=== PATIENT | male | born 1990 | race Caucasian/White ===

== ENCOUNTER 2016-04-06 08:21 | Inpatient (IN) | payer OTHER ==
[~2016-04-06] VITALS: Ht 170.2 cm; Wt 114.0 kg
[2016-04-06] MEDS ORDERED: FLUMAZENIL 0.5 MG INJ IV STA (08:29)
[2016-04-06] MEDS ORDERED: SOD CHLORIDE 0.9% 1,000 ML IV STA (08:29)
[2016-04-06] MEDS ORDERED: NALOXONE 2 MG SYG IV ONE (08:30)
[2016-04-06 08:59] LABS: BASOPHILS % 0.1 % (0.0-2.0); HEMATOCRIT 44.6 % (42.0-52.0); HEMOGLOBIN 15.3 g/dl (14.0-18.0); LYMPHOCYTES # 0.9 10^3/ul (0.8-2.9); LYMPHOCYTES % 5.7 % (15.0-51.0); MEAN CORPUSCULAR HEMOGLOBIN 30.2 pg (29.0-33.0); MEAN CORPUSCULAR HGB CONC 34.3 g/dl (32.0-37.0); MEAN PLATELET VOLUME 8.1 fl (7.4-10.4); MONOCYTE # 0.7 10^3/ul (0.3-0.9); MONOCYTES % 4.3 % (0.0-11.0); NEUTROPHIL # 13.8 10^3/ul (1.6-7.5); NEUTROPHILS % 89.9 % (39.0-77.0); PLATELET COUNT 236 10^3/UL (140-440); RED BLOOD COUNT 5.07 10^6/ul (4.70-6.10); RED CELL DISTRIBUTION WIDTH 12.7 % (11.5-14.5); UNCORRECTED WBC 15.4 10^3/ul (4.8-10.8); WHITE BLOOD COUNT 15.4 10^3/ul (4.8-10.8)
[2016-04-06 09:06] LABS: ALBUMIN 4.8 g/dl (3.3-4.9); CHLORIDE 104 mmol/L (97-110)
[2016-04-06 09:07] LABS: POTASSIUM 4.5 mmol/L (3.5-5.1); SODIUM 148 mmol/L (135-144)
[2016-04-06 09:08] LABS: CREATININE 0.82 mg/dl (0.61-1.24); INR 0.97; PARTIAL THROMBOPLASTIN TIME 24.8 Sec (25.0-35.0); PROTIME 12.9 Sec (12.2-14.2)
[2016-04-06 09:09] LABS: ALANINE AMINOTRANSFERASE 99 IU/L (13-69); ALBUMIN/GLOBULIN RATIO 1.17; ALKALINE PHOSPHATASE 98 IU/L (42-121); ANION GAP 26 (8-16); ASPARTATE AMINO TRANSFERASE 97 IU/L (15-46); BLOOD UREA NITROGEN 7 mg/dl (7-20); CARBON DIOXIDE 23 mmol/L (21-31); GLUCOSE 126 mg/dl (70-220); TOTAL PROTEIN 8.9 g/dl (6.1-8.1)
[2016-04-06 09:10] LABS: ACETAMINOPHEN < 10.0 ug/ml (10.0-30.0); CALCIUM 8.2 mg/dl (8.4-10.2); CONDITION 1; SALICYLATE < 1.0 mg/dl (5.0-30.0)
[2016-04-06 09:11] LABS: ADD UMIC NO; URINE BILIRUBIN (Dip) NEGATIVE (NEGATIVE); URINE BLOOD (Dip) NEGATIVE (NEGATIVE); URINE COLOR LT. YELLOW (YELLOW); URINE GLUCOSE (Dip) NEGATIVE (NEGATIVE); URINE KETONES (Dip) NEGATIVE (NEGATIVE); URINE LEUKOCYTE ESTERASE (Dip) NEGATIVE (NEGATIVE); URINE NITRITE (Dip) NEGATIVE (NEGATIVE); URINE TOTAL PROTEIN (Dip) NEGATIVE (NEGATIVE); URINE UROBILINOGEN (Dip) 0.2 E.U./dL (0.1-1.0)
--- NOTE | 2016-04-06 09:11 | RADRPT ---
PROCEDURE: Chest Radiograph. CLINICAL INDICATION: Altered level of consciousness TECHNIQUE: Single frontal chest radiograph. COMPARISON: None available FINDINGS: The heart is magnified. The cardiomediastinal silhouette is within normal limits. Lung volumes are decreased there is mild basilar atelectasis and central compressive change. No infiltrate or effusi on is seen. The bones are intact. IMPRESSION: 1. No evidence of acute cardiopulmonary disease. RPTAT: KK .Robert Rubio MD, MD Date Time Electronically viewed and signed by .Robert Rubio MD, MD on 04/06/2016 09:10 .B/
--- NOTE | 2016-04-06 09:22 | RADRPT ---
PROCEDURE: CT brain without contrast CLINICAL INDICATION: Altered mental status, possible drug overdose TECHNIQUE: CT of the brain without contrast was performed on a multidetector CT scanner, with multi planar reformats. One or more of the following dose reduction techniques were used: Automated expos ure control, adjustment in mA and / or kV according to patient size, use of iterative reconstructive technique. CTDIvol = 43.6 mGy; DLP = 630.2 mGy-cm. COMPARISON: None available FINDINGS: There are patient motion related artifacts mildly limiting evaluation. No acute intracranial hemorr graciela is identified. No extra-axial fluid collection is seen. There is no mass effect. No midline shift is identified. Ventricles and sulci are within normal limits for size and configuration. The density of the visualized portions of the brain is unremarkable. Visualized henson-white junction s appear preserved. Calvarium and skull base are unremarkable. 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 IMPRESSION: Mildly limited evaluation due to motion, without acute intracranial pathology identified. RPTAT: VV .Reginald Pickering MD, MD Date Time Electronically viewed and signed by .Reginald Pickering MD, on 04/06/2016 09:21 .O/
[2016-04-06 09:39] LABS: BARBITURATES NEGATIVE (NEGATIVE); BENZODIAZEPINES NEGATIVE (NEGATIVE); CANNABINOIDS POSITIVE (NEGATIVE)
[2016-04-06 09:40] LABS: COCAINE NEGATIVE (NEGATIVE); OPIATES NEGATIVE (NEGATIVE)
[2016-04-06] MEDS ORDERED: MAGNESIUM SULFATE 2 GM, MULTIVITAMINS 10 ML, THIAMINE 100 MG, FOLIC ACID 1 MG in SOD CH... IV STA (10:43)
--- NOTE | 2016-04-06 10:56 | ERA ---
ER Documentation Chief Complaint Date/Time DATE: 04/06/16 TIME: 10:52 Chief Complaint BIBA D/T ALOC SUSPECTED OVERDOSE UNK SUBSTANCE. ETOH ODOR NOTED. HPI This is a 25-year-old male who was found in his truck with altered level of consciousness. According to EMS the family states he does drink a lot of alcohol and is not uncommon for him to sleep in his car. Friend found him this morning and found him difficult to arouse. He did have the smell of alcohol on his breath. EMS was called because the patient would not wake up very easily. There is no drug paraphernalia found. On arrival the patient is somnolent but will arouse to painful stimulation. Very limited history ROS All systems reviewed and are negative except as per history of present illness. Medications Home Meds Unable to Obtain Active Prescriptions or Reported Meds Allergies Allergies: Coded Allergies: Unable to Assess (Verified Allergy, Severe, 04/06/16) PMhx/Soc Hx Alcohol Use: Yes (ETOH ODOR NOTED ON PT) Smoking Status: Unknown if ever smoked FmHx Unable to obtain due to mental status Physical Exam Vitals Vital Signs Date Time Temp Pulse Resp B/P Pulse Ox O2 Delivery O2 Flow Rate FiO2 04/06/16 10:27 146 25 135/93 Mask 10.0 04/06/16 09:00 98.1 139 30 134/77 100 04/06/16 08:25 Non Rebreather 15 04/06/16 08:21 98.1 139 30 134/77 88 Physical Exam Const: Well-developed, well-nourished Head: Atraumatic, normocephalic Eyes: Normal Conjunctiva, PERRLA, EOMI, injected sclera, no nystagmus ENT: Normal External Ears, Nose and Mouth, moist mucus membranes. Neck: Full range of motion. No meningismus, no lymphadenopathy. Resp: Clear to auscultation bilaterally, no wheezing, rhonchi, rales Cardio: Tachycardia, no murmurs, S1 S2 present Abd: Soft, non tender x 4, non distended. Normal bowel sounds, no guarding or rebound, no pulsitile abdominal masses or bruits Skin: No petechiae or rashes, no ecchymosis , no maculopapular rash Back: No midline or flank tenderness Ext: No cyanosis, or edema, FROM x 4, normal inspection, neurovascularly intact x 4 Neur: Moves all fours, somnolent but arousable to painful stimulus will open eyes briefly then go back to sleep Psych: [Unable to obtain Result Diagram: 04/06/16 0835 04/06/16 0835 Results 24 hrs Laboratory Tests Test 04/06/16 08:35 04/06/16 08:50 Acetaminophen Level < 10.0ug/ml Activated Partial Thromboplast Time 24.8Sec Alanine Aminotransferase (ALT/SGPT) 99IU/L Albumin 4.8g/dl Albumin/Globulin Ratio 1.17 Alkaline Phosphatase 98IU/L Anion Gap 26 Aspartate Amino Transf (AST/SGOT) 97IU/L Basophils # 0.010^3/ul Basophils % 0.1% Blood Urea Nitrogen 7mg/dl Calcium Level 8.2mg/dl Carbon Dioxide Level 23mmol/L Chloride Level 104mmol/L Creatinine 0.82mg/dl Direct Bilirubin 0.00mg/dl Eosinophils # 0.010^3/ul Eosinophils % 0.0% Ethyl Alcohol Level 164.0mg/dl Globulin 4.10g/dl Glucose Level 126mg/dl Hematocrit 44.6% Hemoglobin 15.3g/dl INR International Normalized Ratio 0.97 Indirect Bilirubin 0.0mg/dl Lymphocytes # 0.910^3/ul Lymphocytes % 5.7% Mean Corpuscular Hemoglobin 30.2pg Mean Corpuscular Hemoglobin Concent 34.3g/dl Mean Corpuscular Volume 88.0fl Mean Platelet Volume 8.1fl Monocytes # 0.710^3/ul Monocytes % 4.3% Neutrophils # 13.810^3/ul Neutrophils % 89.9% Nucleated Red Blood Cells # 0.010^3/ul Nucleated Red Blood Cells % 0.0/100WBC Platelet Count 29544^3/UL Potassium Level 4.5mmol/L Prothrombin Time 12.9Sec Prothrombin Time Ratio 1.0 Red Blood Count 5.0710^6/ul Red Cell Distribution Width 12.7% Salicylates Level < 1.0mg/dl Sodium Level 148mmol/L Total Bilirubin 0.0mg/dl Total Protein 8.9g/dl White Blood Count 15.410^3/ul Urine Amphetamines Screen NEGATIVE Urine Barbiturates NEGATIVE Urine Benzodiazepines Screen NEGATIVE Urine Bilirubin NEGATIVE Urine Cannabinoids POSITIVE Urine Clarity CLEAR Urine Cocaine Screen NEGATIVE Urine Color LT. YELLOW Urine Glucose NEGATIVE% Urine Hemoglobin NEGATIVE Urine Ketones NEGATIVE Urine Leukocyte Esterase NEGATIVE Urine Nitrite NEGATIVE Urine Opiates Screen NEGATIVE Urine Specific [place] 1.020 Urine Total Protein NEGATIVE Urine Urobilinogen 0.2 E.U./dL Urine pH 5.5 Current Medications Medications (Trade) Dose Ordered Sig/Suzanne Route PRN Reason Start Time Stop Time Status Last Admin Dose Admin Sodium Chloride (NS) 1,000 ml @ 1,000 mls/hr Q1H STAT IV 04/06/16 08:29 04/06/16 09:28 DC 04/06/16 08:54 Flumazenil (Romazicon) 0.2 mg ONCE STAT IV 04/06/16 08:29 04/06/16 08:32 DC 04/06/16 08:55 Naloxone HCl 1 mg 1 mg ONCE ONCE IV 04/06/16 08:30 04/06/16 08:32 DC 04/06/16 08:54 Magnesium Sulfate/ Multivitamins/ Thiamine HCl/ Folic Acid/Sodium Chloride (Magnesium Sulfate/Mvi Adult/ Vitamin B1/Folic Acid/NS) 1,015.2 ml @ 500 mls/ hr Q2H2M STAT IV 04/06/16 10:43 04/06/16 12:44 Procedures/MDM PROCEDURE: CT brain without contrast CLINICAL INDICATION: Altered mental status, possible drug overdose TECHNIQUE: CT of the brain without contrast was performed on a multidetector CT scanner, with multiplanar reformats. One or more of the following dose reduction techniques were used: Automated exposure control, adjustment in mA and / or kV according to patient size, use of iterative reconstructive technique. CTDIvol = 43.6 mGy; DLP = 630.2 mGy-cm. COMPARISON: None available FINDINGS: There are patient motion related artifacts mildly limiting evaluation. No acute intracranial hemorrhage is identified. No extra-axial fluid collection is seen. There is no mass effect. No midline shift is identified. Ventricles and sulci are within normal limits for size and configuration. The density of the visualized portions of the brain is unremarkable. Visualized henson-white junctions appear preserved. Calvarium and skull base are unremarkable. 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 IMPRESSION: Mildly limited evaluation due to motion, without acute intracranial pathology identified. RPTAT: VV .Reginald Pickering MD, MD Date Time Electronically viewed and signed by .Reginald Pickering MD, MD on 04/06/2016 09:21 .O/ CC: JIM ORDONEZ DO PROCEDURE: Chest Radiograph. CLINICAL INDICATION: Altered level of consciousness TECHNIQUE: Single frontal chest radiograph. COMPARISON: None available FINDINGS: The heart is magnified. The cardiomediastinal silhouette is within normal limits. Lung volumes are decreased there is mild basilar atelectasis and central compressive change. No infiltrate or effusion is seen. The bones are intact. IMPRESSION: 1. No evidence of acute cardiopulmonary disease. RPTAT: KK .Robert Rubio MD, MD Date Time Electronically viewed and signed by .Robert Rubio MD, MD on 2016 09:10 .B/ CC: JIM ORDONEZ DO EKG: Rate/Rhythm: Sinus tachycardia QRS, ST, QT: NORMAL ME, QRS, QT] Impression: Sinus tachycardia l EKG Patient was given Narcan 1 mg IV and there is no response. He was then given flumazenil 0.2 mg IV 2 with some improvement and will go back to baseline. No evidence of stroke. The patient has an elevated alcohol level. He still could have taken some type of prescription medication or other illicit substance. He may have had a lot of marijuana as his THC is positive. This in combination with the alcohol may be why he is so somnolent. We will put him in the ICU for observation. His mental status is better now he is much more arousable with painful stimulus he will open eyes and talk to you more and then goes back to sleep. Departure Diagnosis: Primary Impression: Altered level of consciousness Condition: Fair JIM ORDONEZ DO Apr 06, 2016 10:56
[2016-04-06] MEDS ORDERED: ONDANSETRON 4 MG INJ IV PRN (11:00)
[2016-04-06] MEDS ORDERED: NITROGLYCERIN (SL) 0.4 MG TAB SL PRN (11:00)
[2016-04-06] MEDS ORDERED: LORAZEPAM 2 MG INJ IV PRN (11:00)
[2016-04-06] MEDS ORDERED: ACETAMINOPHEN 325 MG TAB PO PRN (11:00)
[2016-04-06] MEDS ORDERED: ACETAMINOPHEN 650MG/20.3ML CUP PO PRN (11:00)
[2016-04-06] MEDS: FAMOTIDINE 20 MG INJ IV SCH ×2 (11:54→22:13)
[2016-04-06] MEDS: CEFTRIAXONE 1 GM/50 ML (PMX) 50 ML IVPB SCH (11:55)
[2016-04-06] MEDS: IPRATROPIUM (NEB) 0.5 MG/2.5 ML AMP NEB SCH ×2 (13:56→22:05)
[2016-04-06] MEDS: ALBUTEROL 0.5% (NEB) 2.5 MG/0.5 ML AMP NEB SCH ×2 (13:56→22:05)
[2016-04-06] MEDS ORDERED: METOPROLOL 5 MG INJ IV ONE (16:30)
[2016-04-06] MEDS: SOD CHLORIDE 0.45% 1,000 ML IV SCH ×2 (17:01→23:55)
--- NOTE | 2016-04-06 18:40 | HP ---
DATE OF ADMISSION: 04/06/2016 TECHNICAL SUPPORT MANAGER: None. CHIEF COMPLAINT: Altered mental status and alcohol intoxication. HISTORY OF PRESENT ILLNESS: This is a 25-year-old gentleman with past medical history of alcoholism who was found unconscious and obtunded in his vehicle this morning, 911 was called and patient was brought into the emergency room of [facility] via EMS where patient was continued to be obtunded. His alcohol level was found to be elevated at 164 cannabinoids positive. The rest of the urine drug screen was found to be negative. LABS: WBC 15.4. Sodium 148. Troponin at 0.105. Patient was started on banana bag, normal saline, Narcan, promethazine and patient at this time is starting to be responsive to pain and verbal stimu li. He is able to follow commands and requesting to be fed. PAST MEDICAL AND SURGICAL HISTORY: Alcoholism, history of cannabinoid use. MEDICATIONS: None. ALLERGIES: UNKNOWN. SOCIAL HISTORY: He has been drinking since age of 19 on a daily basis, about 100 ounces of beer and Bacardi alcohol. Positive for THC use, no other illicit drugs. FAMILY HISTORY: Noncontributory. He is homeless and lives in his car. FAMILY HISTORY: Noncontributory. REVIEW OF SYSTEMS: As above per HPI, otherwise it is unobtainable. PHYSICAL EXAMINATION: VITAL SIGNS: Temperature 100.8, pulse 108-150, respiration rate 28, blood pressure 181/90, oxygen s aturation 97%. GENERAL APPEARANCE: The patient is lying in the bed, obtunded, able to answer questions and follow simple commands only. Body habitus mildly overweight. EYES AND ENT: Pupils reactive to light and lids are normal. Pupils are normal. Extraocular motor is normal. Oral mucosa is dry. NECK: Supple. Trachea is midline. No lymphadenopathy. RESPIRATORY: Effort is normal. Clear to auscultate bilaterally. CARDIOVASCULAR: Tachycardic. Normal S1, S2. ABDOMEN: Soft, nontender, not distended. Bowel sounds present. No guarding, no rebound. GENITOURINARY: Deferred. MUSCULOSKELETAL: Upper and lower extremities within normal limits. NEUROLOGIC: Patient is awake, able to follow simple commands, oriented to self and place. FAMILY HISTORY: Noncontributory. REVIEW OF SYSTEMS: As above per HPI, otherwise unobtainable. The patient denies having any chest p ain or shortness of breath. LABORATORY WORK AND IMAGING: WBC 15.4, hemoglobin 15.3, hematocrit 44.6, platelets 236. Sodium 148 , potassium 4.5, chloride 104, bicarbonate 23, BUN 7, creatinine 0.82, glucose 126, calcium 8.2. Tr oponin 0.015. UDS positive for alcohol and THC, otherwise negative. Urinalysis negative. PT 12.9, INR 0.97. Chest x-ray showed no evidence of acute cardiopulmonary disease. CT of the brain showed mildly limited evaluation due to motion without acute intracranial pathology identified. ASSESSMENT AND PLAN: 1. Altered mental status secondary to alcohol intoxication. 2. Alcohol intoxication. Patient has been started on banana bag, Ativan Librium. Education will be provided when patient is more awake and alert. 3. Leukocytosis, likely reactive. 4. Tachycardia, likely secondary to alcohol abuse. The patient has been placed on IV fluid though we will replace on p.r.n. metoprolol. 5. For deep venous thrombosis prophylaxis, on sequential compression devices. 9. For gastrointestinal prophylaxis, on Pepcid. 10. We will continue to monitor patient closely. Further recommendations, management and treatment as per clinical course. Total amount was spent for evaluation of patient and admission workup, 55 minutes. Dictated By: YANETH BYRD/JANAY Conf#: [id number] DID#: [id number]
[2016-04-06] MEDS: CHLORDIAZEPOXIDE 25 MG CAP PO SCH (22:13)
[2016-04-06 22:50] VITALS: TEMP 99.8
[2016-04-06 23:11] VITALS: PULSE 130
[2016-04-06 23:28] VITALS: Ht 170.2 cm; Wt 114.0 kg
[2016-04-06] MEDS: METOPROLOL 25 MG TAB PO SCH (23:55)
[2016-04-07] VITALS (9 sets, daily range): BP systolic 134–155; BP diastolic 77–87; PULSE 97–113; RESP 12–20
[2016-04-07] MEDS: IPRATROPIUM (NEB) 0.5 MG/2.5 ML AMP NEB SCH ×4 (01:00→13:27)
[2016-04-07] MEDS: ALBUTEROL 0.5% (NEB) 2.5 MG/0.5 ML AMP NEB SCH ×4 (01:00→13:27)
[2016-04-07] MEDS: SOD CHLORIDE 0.45% 1,000 ML IV SCH ×2 (07:27→12:53)
[2016-04-07 08:09] LABS: BASOPHILS % 0.2 % (0.0-2.0); EOSINOPHILS # 0.1 10^3/ul (0.0-0.5); EOSINOPHILS % 0.5 % (0.0-7.0); HEMATOCRIT 40.8 % (42.0-52.0); HEMOGLOBIN 13.8 g/dl (14.0-18.0); LYMPHOCYTES # 2.2 10^3/ul (0.8-2.9); LYMPHOCYTES % 17.7 % (15.0-51.0); MEAN CORPUSCULAR HEMOGLOBIN 30.1 pg (29.0-33.0); MEAN CORPUSCULAR HGB CONC 33.8 g/dl (32.0-37.0); MEAN CORPUSCULAR VOLUME 89.2 fl (82.0-101.0); MEAN PLATELET VOLUME 8.2 fl (7.4-10.4); MONOCYTE # 1.1 10^3/ul (0.3-0.9); MONOCYTES % 8.5 % (0.0-11.0); NEUTROPHILS % 73.1 % (39.0-77.0); PLATELET COUNT 170 10^3/UL (140-440); RED BLOOD COUNT 4.57 10^6/ul (4.70-6.10); RED CELL DISTRIBUTION WIDTH 12.7 % (11.5-14.5); UNCORRECTED WBC 12.4 10^3/ul (4.8-10.8); WHITE BLOOD COUNT 12.4 10^3/ul (4.8-10.8)
[2016-04-07 08:15] LABS: CONDITION 1
[2016-04-07 08:29] LABS: ALBUMIN 3.9 g/dl (3.3-4.9); INR 1.06; POTASSIUM 3.8 mmol/L (3.5-5.1); PROTIME 13.8 Sec (12.2-14.2); PT RATIO 1.1
[2016-04-07 08:31] LABS: BILIRUBIN,INDIRECT 1.1 mg/dl (0-1.1); BILIRUBIN,TOTAL 1.1 mg/dl (0.2-1.3); CREATININE 0.72 mg/dl (0.61-1.24); TOTAL PROTEIN 7.4 g/dl (6.1-8.1)
[2016-04-07 08:32] LABS: CALCIUM 8.4 mg/dl (8.4-10.2); MAGNESIUM 2.2 mg/dl (1.7-2.5)
[2016-04-07] MEDS ORDERED: MULTIVITAMINS 10 ML, THIAMINE 100 MG, FOLIC ACID 1 MG in SOD CHLORIDE 0.9% 1,000 ML IVPB SCH (09:00)
[2016-04-07] MEDS: FAMOTIDINE 20 MG INJ IV SCH (09:55)
[2016-04-07] MEDS: CHLORDIAZEPOXIDE 25 MG CAP PO SCH ×2 (09:55→12:33)
[2016-04-07] MEDS: METOPROLOL 25 MG TAB PO SCH (09:56)
[2016-04-07] MEDS: CEFTRIAXONE 1 GM/50 ML (PMX) 50 ML IVPB SCH (12:33)
--- NOTE | 2016-04-07 14:37 | PDOCDIS ---
Discharge Instructions CONDITION Patient Condition: Good HOME CARE INSTRUCTIONS: Special Diet: full liquid and advance as tolerated YANETH PAL MD Apr 07, 2016 14:37
[2016-04-07] MEDS ORDERED: MULT-761 PO (14:42)
[2016-04-07] MEDS ORDERED: FOLI-49 PO (14:42)
[2016-04-07] MEDS ORDERED: CHLO25CA9 PO (14:42)
[2016-04-07] MEDS ORDERED: GENT5DRO28 BOTH EYES (14:42)
[2016-04-07] MEDS ORDERED: IPRA4AER INHALATION (14:42)
[2016-04-07] MEDS ORDERED: THIA100T10 PO (14:42)
[2016-04-07] MEDS ORDERED: FAMO20TA18 PO (14:42)
[2016-04-07] MEDS ORDERED: METO-448 PO (14:42)
[2016-04-07] MEDS ORDERED: CHLORDIAZEPOXIDE 25 MG CAP PO SCH (21:00)
--- NOTE | 2016-04-08 05:57 | DS ---
DATE OF ADMISSION: 04/06/2016 DATE OF DISCHARGE: 04/07/2016 CONSULTANTS: 1. developer relations manager. 2. Social Service. DISCHARGE DIAGNOSES: 1. Altered mental status secondary to alcohol intoxication, resolved. 2. Alcohol intoxication. The patient was started on a banana bag, Ativan, Librium, but was dischar ged on multivitamins, folic acid, thiamine and Librium. 3. Leukocytosis, likely reactive secondary to altered mental status. 4. Right eye conjunctivitis. Discharged on gentamicin ophthalmic. 5. Tachycardia, resolved. 6. Essential hypertension, on Metoprolol. MEDICATIONS: 1. Combivent. 2. Librium 50 mg. 3. Pepcid 20 mg 4. Folic acid 1 mg. 5. Gentamicin ophthalmic. 6. Metoprolol 25 mg. 7. Multivitamin, 1 tab. 8. Thiamine 100 mg. ALLERGIES: NO KNOWN DRUG ALLERGIES. DISPOSITION: Home, although the patient will be provided with information regarding halfway and AA. HOSPITAL COURSE: This is a 25-year-old gentleman with past medical history of alcoholism, who was f ound unconscious on the morning of 04/06/2016. According to patient, the patient had been dr inking daily for the past 5 years, although he had drank more than usual and drank about 100 ounces of beer the evening before. He is homeless and he fell asleep in his car, although he was found to be unconscious and obtunded by a bystander. 911 was called and the patient was brought into the [facility] room at [facility] via EMS, where he was found to be altered. His alcohol l evel was found to be 164, plus cannabinoids on his urine drug screen. His WBC was found to be 15.4. He was started on IV fluids and then was transitioned to a banana bag, normal saline, Narcan and p romethazine. According to him, the patient was found to be mildly tachycardic; therefore, he was ad mitted to the telemetry floor. There was no respiratory distress, although he was found to have mil d wheezing; therefore, he was placed on a breathing treatment. He was placed on Ativan p.r.n., alth ough there was no sign of agitation during this course of hospitalization. He was continued on aggr essive IV fluids/banana bag during this course of hospitalization. This morning he is awake, alert, oriented, was able to ambulate without any product development assistant to the bathroom. He was able to tolerate oral intake and at this time the patient is awake, alert. About 30 minutes of time was spent regarding education regarding his alcohol habits and the risk of drinking, which may lead to end stage liver d isease, cirrhosis, thrombocytopenia, anemia, esophageal varices, hematemesis or hematochezia. The p atient understands the risk. At this time the patient is planning to discontinue the use of alcohol . He is medically stable to be discharged home. LABORATORY: WBC 12.4, hemoglobin 13.8, hematocrit 40.8, platelets 170. Sodium 139, potassium 3.8, chloride 102, bicarbonate 24, BUN 7, creatinine 0.72, glucose 105. AST 47, lipase 140. Urinalysis negative. PT 13.8, INR 1.06. Vitals: Temperature 98.7, pulse 93, respirations 16, blood pressure 1 55/86, oxygen 98% on room air. CONDITION AT THE TIME OF DISCHARGE: Stable. Total amount of time spent for evaluation of the patient's discharge workup was 40 minutes. Dictated By: YANETH BYRD/JANAY Conf#: [id number] DID#: [id number]
== END 2016-04-07 16:25 | disposition home or self-care (01) | DRG 897 ==
LOC: E/R 08:21 → EDBD 23:04 → TEL 23:04 → MERGE 23:04
PROVIDERS: ADMIT Family Medicine; ATTEND Family Medicine
DX: F10.229 Alcohol dependence with intoxication, unspecified (principal); I10 Essential (primary) hypertension; Y90.6 Blood alcohol level of 120-199 mg/100 ml; Z59.0 Homelessness; H10.9 Unspecified conjunctivitis; R00.0 Tachycardia, unspecified; R06.2 Wheezing
CPT/HCPCS: 36415; 70450; 71010; 80048; 80053; 80076; 80306; 80307; 81003; 83690; 83735; 84484; 85025; 85610; 85730; 92610; 93005; 94640; 94664; 96374; 96375; 96376; J0696; J3411; J3475; J7030

== ENCOUNTER 2016-04-24 17:50 | Emergency (ER) | payer OTHER ==
[~2016-04-24] VITALS: Ht 175.3 cm; Wt 107.7 kg
[~2016-04-24 17:50] MED LIST: CHLO25CA9 PO; FAMO20TA18 PO; FOLI-49 PO; GENT5DRO28 BOTH EYES; IPRA4AER INHALATION; METO-448 PO; MULT-761 PO; THIA100T10 PO
[2016-04-24 18:04] VITALS: Ht 175.3 cm; Wt 107.7 kg
[2016-04-24] MEDS ORDERED: SOD CHLORIDE 0.9% 1,000 ML IV STA ×2 (18:19→21:15)
[2016-04-24] MEDS ORDERED: LORAZEPAM 2 MG INJ IV STA (18:19)
[2016-04-24] MEDS ORDERED: HALOPERIDOL 5 MG INJ IM STA (18:40)
[2016-04-24] MEDS ORDERED: HALOPERIDOL 5 MG INJ ONE (18:41)
[2016-04-24 18:46] VITALS: TEMP 97.6
[2016-04-24] MEDS ORDERED: LORAZEPAM 2 MG INJ IM ONE (19:00)
--- NOTE | 2016-04-24 19:24 | RADRPT ---
PROCEDURE: XR Chest. CLINICAL INDICATION: Altered mental status TECHNIQUE: Single frontal chest x-ray. COMPARISON: None. FINDINGS: The lungs are adequately expanded and clear. There is no focal consolidation, pleural effusion, or pneumothorax. The heart and mediastinal contours are unremarkable. Bones are unremarkable. There a re no acute fractures. RPTAT: QQ IMPRESSION: No acute cardiopulmonary abnormality. .Thais Armando MD, MD Date Time Electronically viewed and signed by .Thais Armando MD, on 04/24/2016 19:24 .T/
--- NOTE | 2016-04-24 19:44 | ERA ---
ER Documentation Chief Complaint Date/Time DATE: 04/24/16 TIME: 19:38 Chief Complaint ALOC HPI This is a 25-year-old male with an previous psychiatric history of schizophrenia that was brought into the emergency department by his mother and his sister. They had phoned 911 as they were concerned that the patient had attempted to commit suicide with a drug overdose. He had a bottle of muscle relaxants which the mother stated she was concerned he could have taken. She states that the patient has been admitted to previous psychiatric facilities and has attempted to commit suicide in the past. When the patient arrived to the emergency department he stated he was not suicidal or homicidal but stated he was intoxicated as he had consumed a significant amount of beer prior to arrival. He denies a headache or changes in vision. He denies any chest pain or pressure that radiates to the neck arm back or jaw. He denies any hemoptysis hematemesis or melanotic stools. His mother indicates that he was diagnosed over at all of [facility] with schizophrenia and possible bipolar and he has not been compliant with his medications. ROS All systems reviewed and are negative except as per history of present illness. Medications Home Meds Active Scripts Albuterol/Ipratropium* (Combivent Respimat*) 20-100 Mcg/Inh - 4 Gm Aer.w.adap, 1 PUFF INHALATION QID, #1 INHALER Prov:YANETH PAL MD 04/07/16 Gentamicin Sulfate* (Gentamicin Sulfate* Ophth) 0.3% - 5 Ml Drops, 1 DROP BOTH EYES Q4 for 10 Days, EA Prov:YANETH PAL MD 04/07/16 Thiamine* (Thiamine*) 100 Mg Tablet, 100 MG PO DAILY, #30 TAB 2 Refills Prov:YNAETH PAL MD 04/07/16 Multivitamin (MULTI VITAMIN DAILY) 1 Each Tablet, 1 TAB PO DAILY, #30 TAB 2 Refills Prov:YANETH PAL MD 04/07/16 Folic Acid* (Folic Acid*) 1 Mg Tablet, 1 MG PO DAILY, #30 TAB 2 Refills Prov:YANETH PAL MD 04/07/16 Famotidine* (Famotidine*) 20 Mg Tablet, 20 MG PO DAILY, #30 TAB Prov:YANETH PAL MD 1/19/17 Metoprolol Tartrate* (Lopressor*) 25 Mg Tab, 25 MG PO BID, #60 TAB Prov:YANETH PAL MD 04/07/16 Chlordiazepoxide* (Chlordiazepoxide*) 25 Mg Capsule, 50 MG PO TID, #21 CAP Prov:YANETH PAL MD 04/07/16 Allergies Allergies: Coded Allergies: No Known Allergy (Verified , 09/01/10) PMhx/Soc Medical and Surgical Hx: pt denies Medical Hx, pt denies Surgical Hx History of Surgery: No Hx Neurological Disorder: No Hx Respiratory Disorders: No Hx Cardiac Disorders: No Hx Psychiatric Problems: No Hx Miscellaneous Medical Probl: No Hx Alcohol Use: Yes (2- 40oz today) Hx Substance Use: Yes Hx Tobacco Use: Yes (sometimes) Smoking Status: Current some day smoker Physical Exam Vitals Vital Signs Date Time Temp Pulse Resp B/P Pulse Ox O2 Delivery O2 Flow Rate FiO2 04/24/16 18:46 97.6 86 20 135/86 100 Room Air 04/24/16 18:04 99.0 129 20 142/97 Physical Exam Constitutional:Well-developed. Well-nourished. HEENT:Normocephalic. Atraumatic.Pupils were 5 mm and reactive bilaterally. Moist mucous membranes.No tonsillar exudates. Neck: No nuchal rigidity. No lymphadenopathy. No posterior cervical spine tenderness or step-offs. Respiratory: Not using accessory muscles of respiration.Lungs were clear to auscultation bilaterally. No rhonchi. No rales. No wheezing. Cardiovascular: Regular rate regular rhythm.No murmurs. No rubs were appreciated.S1, S2 normal. Distal pulses are palpable 2+ bilaterally. GI: Abdomen was soft. Nontender. Non Distended. No pulsatile abdominal masses or bruits. No rebound. No guarding. Bowel sounds were present and normal. Muscle skeletal: Full range of motion of both the upper and lower extremities bilaterally.Normal muscle tone.No assymetrical calf tenderness or swelling. Skin: No petechia, no purpura. No lesions on the palms or the soles of the feet. No maculopapular rash. NEURO: Patient was alert awake. He was very belligerent, yelling profanities and reluctant to answer most questions. Patient smelled of alcohol. Gait was observed and ataxic. Patient denied suicidal or homicidal thoughts or ideations. No auditory tactile or visual hallucinations. Result Diagram: 04/24/16202404/24/162024 Results 24 hrs Laboratory Tests Test 04/24/16 20:25 Acetaminophen Level < 10.0ug/ml Activated Partial Thromboplast Time 26.6Sec Alanine Aminotransferase (ALT/SGPT) 145IU/L Albumin 4.6g/dl Albumin/Globulin Ratio 1.27 Alkaline Phosphatase 96IU/L Ammonia 13umol/l Anion Gap 22 Aspartate Amino Transf (AST/SGOT) 106IU/L Basophils # 0.010^3/ul Basophils % 0.3% Blood Urea Nitrogen 8mg/dl Calcium Level 8.7mg/dl Carbon Dioxide Level 26mmol/L Chloride Level 107mmol/L Creatine Kinase 646IU/L Creatine Kinase Index 0.4 Creatinine 0.87mg/dl Creatinine Kinase MB (Mass) 2.79ng/ml Direct Bilirubin 0.00mg/dl Eosinophils # 0.010^3/ul Eosinophils % 0.5% Ethyl Alcohol Level 299.0mg/dl Globulin 3.60g/dl Glucose Level 139mg/dl Hematocrit 48.0% Hemoglobin 16.3g/dl INR International Normalized Ratio 0.93 Indirect Bilirubin 0.0mg/dl Lymphocytes # 3.810^3/ul Lymphocytes % 46.3% Mean Corpuscular Hemoglobin 30.2pg Mean Corpuscular Hemoglobin Concent 33.9g/dl Mean Corpuscular Volume 89.1fl Mean Platelet Volume 8.0fl Monocytes # 0.610^3/ul Monocytes % 7.1% Neutrophils # 3.710^3/ul Neutrophils % 45.8% Nucleated Red Blood Cells # 0.010^3/ul Nucleated Red Blood Cells % 0.0/100WBC Platelet Count 85889^3/UL Potassium Level 4.4mmol/L Prothrombin Time 12.5Sec Prothrombin Time Ratio 1.0 Red Blood Count 5.3910^6/ul Red Cell Distribution Width 13.6% Salicylates Level < 1.0mg/dl Sodium Level 151mmol/L Total Bilirubin 0.0mg/dl Total Protein 8.2g/dl Troponin I < 0.012ng/ml White Blood Count 8.110^3/ul Current Medications Medications (Trade) Dose Ordered Sig/Suzanne Route PRN Reason Start Time Stop Time Status Last Admin Dose Admin Lorazepam 1 mg 1 mg ONCE STAT IV 04/24/16 18:19 04/24/16 18:21 DC Sodium Chloride (NS) 1,000 ml @ 1,000 mls/hr Q1H STAT IV 04/24/16 18:19 04/24/16 19:18 DC 04/24/16 20:25 Haloperidol (Haldol) 5 mg ONCE STAT IM 04/24/16 18:40 04/24/16 18:42 DC 04/24/16 18:52 Lorazepam (Ativan) 2 mg ONCE ONCE IM 04/24/16 19:00 04/24/16 19:01 DC 04/24/16 18:52 Haloperidol (Haldol) 5 mg STK-MED ONCE .ROUTE 04/24/16 18:41 04/24/16 18:42 DC Procedures/MDM The patient presented to the emergency department with an acute and persistent change in their mental status. The differential diagnosis is diverse however reversible causes such as hypoglycemia, opiate overdose, thiamine deficiency were immediately considered. The patient was placed on a cardiac monitor technician, continuous pulse oximetry and IV access was established. The patients airway was secure however hypoxic events such as anemia, shock, or severe pulmonary disease were all considered as etiologies in this patients presentation. Circulation assessed with good cap refill and did not require fluids or pressure support. Finger stick for rapid glucose determined to be normal. The patient did become severely agitated during medical assessment. Reassurance and verbal de-escalation were unsuccessful in calming the patient down. The agitation was impeding medical evaluation and treatment, with potential for the patient to harm themselves or others; therefore, pharmacological sedation was required. The patient received IM Haldol and Ativan. [employer] had been called by the family but the patient was not placed on hold. Given that there was the potential for drug overdose I did feel is necessary to obtain an EKG. 12 Lead EKG tracing ordered and reviewed by myself showed: Sinus tachycardia 123 bpm and no arrhythmia. NC interval normal. QRS duration normal. No ST segment elevation No ST segment depression. No changes consistent with acute ischemia. The patient's serum ethanol was elevated. The patient was hyponatremic. He received a total of 2 L boluses of normal saline in the emergency department. Upon clinical sobriety treat the patient will be reevaluated by the telemetry psychiatrist for further evaluation into his suicidal thoughts and ideations. Departure Diagnosis: Primary Impression: Toxic encephalopathy Additional Impressions: Alcohol intoxication Qualified Code: F10.121 - Alcohol intoxication, with delirium Suicidal thoughts Condition: Serious PARUL DRIVER Apr 24, 2016 19:44
--- NOTE | 2016-04-24 20:16 | RADRPT ---
PROCEDURE: CT head without Contrast CLINICAL INDICATION: Altered mental status TECHNIQUE: Transaxial images were made through the head on a multi-slice scanner without intraveno us contrast. Coronal and sagittal images were subsequently reformatted. One or more of the following dose reduction techniques were used: - Automated exposure control. - Adjustment of the mA and/or kV according to patient size. - Use of iterative reconstruction technique. Radiation dose: CTDIvol = 43.05 mGy; DLP = 720.23 mGy-cm. COMPARISON: None FINDINGS: The calvarium appears intact. The mastoid air cells and paranasal sinuses are well-aerated.. The ventricles are normal in size and there is no midline shift. No intracranial bleed, mass, or extra-axial fluid collection is identified. There is good henson-white matter differentiation. IMPRESSION: Unremarkable noncontrast enhanced CT scan of the head. Physician Kendy Date Time Electronically viewed and signed by Physician Kendy on 04/24/2016 20:15 /
[2016-04-24 20:51] LABS: BASOPHILS % 0.3 % (0.0-2.0); EOSINOPHILS % 0.5 % (0.0-7.0); HEMOGLOBIN 16.3 g/dl (14.0-18.0); LYMPHOCYTES # 3.8 10^3/ul (0.8-2.9); LYMPHOCYTES % 46.3 % (15.0-51.0); MEAN CORPUSCULAR HEMOGLOBIN 30.2 pg (29.0-33.0); MEAN CORPUSCULAR HGB CONC 33.9 g/dl (32.0-37.0); MEAN CORPUSCULAR VOLUME 89.1 fl (82.0-101.0); MONOCYTE # 0.6 10^3/ul (0.3-0.9); MONOCYTES % 7.1 % (0.0-11.0); NEUTROPHIL # 3.7 10^3/ul (1.6-7.5); NEUTROPHILS % 45.8 % (39.0-77.0); PLATELET COUNT 289 10^3/UL (140-440); RED BLOOD COUNT 5.39 10^6/ul (4.70-6.10); RED CELL DISTRIBUTION WIDTH 13.6 % (11.5-14.5); UNCORRECTED WBC 8.1 10^3/ul (4.8-10.8); WHITE BLOOD COUNT 8.1 10^3/ul (4.8-10.8)
[2016-04-24 20:54] LABS: ALBUMIN 4.6 g/dl (3.3-4.9); CHLORIDE 107 mmol/L (97-110); INR 0.93; PARTIAL THROMBOPLASTIN TIME 26.6 Sec (25.0-35.0); PROTIME 12.5 Sec (12.2-14.2)
[2016-04-24 20:55] LABS: POTASSIUM 4.4 mmol/L (3.5-5.1); SODIUM 151 mmol/L (135-144)
[2016-04-24 20:56] LABS: CONDITION 1
[2016-04-24 20:57] LABS: ALBUMIN/GLOBULIN RATIO 1.27; ALKALINE PHOSPHATASE 96 IU/L (42-121); ANION GAP 22 (8-16); ASPARTATE AMINO TRANSFERASE 106 IU/L (15-46); BLOOD UREA NITROGEN 8 mg/dl (7-20); CARBON DIOXIDE 26 mmol/L (21-31); CREATININE 0.87 mg/dl (0.61-1.24); GLUCOSE 139 mg/dl (70-220); TOTAL PROTEIN 8.2 g/dl (6.1-8.1)
[2016-04-24 20:58] LABS: ALANINE AMINOTRANSFERASE 145 IU/L (13-69); CALCIUM 8.7 mg/dl (8.4-10.2); CREATINE KINASE 646 IU/L (23-200)
[2016-04-24 20:59] LABS: ACETAMINOPHEN < 10.0 ug/ml (10.0-30.0); SALICYLATE < 1.0 mg/dl (5.0-30.0)
[2016-04-24 21:06] LABS: CK-MB 2.79 ng/ml (0.0-2.4)
[2016-04-24 21:11] LABS: TROPONIN-I < 0.012 ng/ml (0.00-0.12)
[2016-04-24 23:34] LABS: ADD UMIC NO; URINE BILIRUBIN (Dip) NEGATIVE (NEGATIVE); URINE BLOOD (Dip) NEGATIVE (NEGATIVE); URINE COLOR LT. YELLOW (YELLOW); URINE GLUCOSE (Dip) NEGATIVE (NEGATIVE); URINE KETONES (Dip) TRACE (NEGATIVE); URINE LEUKOCYTE ESTERASE (Dip) NEGATIVE (NEGATIVE); URINE NITRITE (Dip) NEGATIVE (NEGATIVE); URINE TOTAL PROTEIN (Dip) NEGATIVE (NEGATIVE); URINE UROBILINOGEN (Dip) 0.2 E.U./dL (0.1-1.0)
[2016-04-24 23:50] LABS: BENZODIAZEPINES Negative (NEGATIVE)
[2016-04-25 00:02] LABS: BARBITURATES Negative (NEGATIVE); CANNABINOIDS Positive (NEGATIVE); COCAINE Negative (NEGATIVE); OPIATES Negative (NEGATIVE)
[2016-04-25] MEDS ORDERED: CLON-412 PO (02:48)
--- NOTE | 2016-04-25 03:29 | PSY ---
Date/Time of Note Date/Time of Note DATE: 04/25/16 TIME: 03:19 Psychiatric Subjective Eval Consent Pt consented to telemedicine: Yes Subjective Evaluation Patient location: emergency Chief Complaint: ALOC Reason for consult: suicidal History of present illness patient is a 25 yo male with PPH Of depression and alcohol dependance who was brought in to the ER due to being intoxicated with alcohol and possibly having taken a bottle of muscle relaxant, family mentionned that he has tried to kill himself before and has had some psychiatric admissions. patient states that he is in the ER because of being drunk, he denies taking any pills in order to hurt himself, denies feeling suicidal or homicidal, states that he drunk too much for the superbowl and thought that he could handle himself. he states that he is scheduled to go to rehab on monday, denies feeling depressed or anxious lately but states not being able to stop drinking alcohol on his own, denies any current manic or psychotic symptoms. Past psychiatric history past admissions Medical history Problems Medical Problems: (1) Alcohol intoxication Status: Acute (2) Altered level of consciousness Status: Acute (3) Suicidal thoughts Status: Acute (4) Toxic encephalopathy Status: Acute Allergies: Coded Allergies: No Known Allergy (Verified , 09/01/10) Substance Abuse Substance abuse history: Yes (alcohol ) Prior substance abuse treatmen: Yes (alcohool ) Social History Marital status: single Level of education: hs DPA/Conservatorship: No Occupation/Detention: unemployed Psychiatric Objective Eval Review of Systems: Review of Systems: Not Applicable Physical Examination: Physical Examination: Applicable Sleep: Insomnia Appetite: Decreased Energy: Adequate Interest: Adequate Mental Status Examination: Appearance: Disheveled Eye Contact: Fair Psychomotor Activity: Normal Behavior: Cooperative Speech: Clear AFFECT: Appropriate Mood: Anxious Though Process: Linear Thought Content: Normal Suicidal: No Homicidal: No On 72 hour hold: No Orientation: x3 Cognition: Alert Insight: Intact Judgement: Intact Attention Span: Intact Laboratory Results Laboratory Tests Test 04/24/16 20:25 04/24/16 22:30 Acetaminophen Level < 10.0ug/ml Activated Partial Thromboplast Time 26.6Sec Alanine Aminotransferase (ALT/SGPT) 145IU/L Albumin 4.6g/dl Albumin/Globulin Ratio 1.27 Alkaline Phosphatase 96IU/L Ammonia 13umol/l Anion Gap 22 Aspartate Amino Transf (AST/SGOT) 106IU/L Basophils # 0.010^3/ul Basophils % 0.3% Blood Urea Nitrogen 8mg/dl Calcium Level 8.7mg/dl Carbon Dioxide Level 26mmol/L Chloride Level 107mmol/L Creatine Kinase 646IU/L Creatine Kinase Index 0.4 Creatinine 0.87mg/dl Creatinine Kinase MB (Mass) 2.79ng/ml Direct Bilirubin 0.00mg/dl Eosinophils # 0.010^3/ul Eosinophils % 0.5% Ethyl Alcohol Level 299.0mg/dl Globulin 3.60g/dl Glucose Level 139mg/dl Hematocrit 48.0% Hemoglobin 16.3g/dl INR International Normalized Ratio 0.93 Indirect Bilirubin 0.0mg/dl Lymphocytes # 3.810^3/ul Lymphocytes % 46.3% Mean Corpuscular Hemoglobin 30.2pg Mean Corpuscular Hemoglobin Concent 33.9g/dl Mean Corpuscular Volume 89.1fl Mean Platelet Volume 8.0fl Monocytes # 0.610^3/ul Monocytes % 7.1% Neutrophils # 3.710^3/ul Neutrophils % 45.8% Nucleated Red Blood Cells # 0.010^3/ul Nucleated Red Blood Cells % 0.0/100WBC Platelet Count 32107^3/UL Potassium Level 4.4mmol/L Prothrombin Time 12.5Sec Prothrombin Time Ratio 1.0 Red Blood Count 5.3910^6/ul Red Cell Distribution Width 13.6% Salicylates Level < 1.0mg/dl Sodium Level 151mmol/L Total Bilirubin 0.0mg/dl Total Protein 8.2g/dl Troponin I < 0.012ng/ml White Blood Count 8.110^3/ul Urine Amphetamines Screen Negative Urine Barbiturates Negative Urine Benzodiazepines Screen Negative Urine Bilirubin NEGATIVE Urine Cannabinoids Positive Urine Clarity CLEAR Urine Cocaine Screen Negative Urine Color LT. YELLOW Urine Glucose NEGATIVE% Urine Hemoglobin NEGATIVE Urine Ketones TRACE Urine Leukocyte Esterase NEGATIVE Urine Nitrite NEGATIVE Urine Opiates Screen Negative Urine Specific [place] 1.025 Urine Total Protein NEGATIVE Urine Urobilinogen 0.2 E.U./dL Urine pH 6.0 Assessment and Plan Assessment/Diagnosis Greybull I: mood do nos anxiety do nos alcohol dependance Greybull II: deferred [place] III: as per record Greybull IV: poor social support Greybull V: gaf 65 Recommendation/Plan Medication Management klonopin 1 mg po qam for 2 days Follow-up/Disposition In my opinion,for this patient, outpatient care is the least restrictive option. Based on available evidence, this condition CAN be safely treated at a lower level of care effective today. Patient is stable without clear and convincing evidence of imminent danger due to mental illness that require acute inpatient psychiatric care as the least restrictive alternative. Please discharge patient with referral for follow up to a outpatient mental health clinic for psychotherapy [id number] Recommendation: Release JAIME Marshall MD Apr 25, 2016 03:29
[2016-04-25 05:10] VITALS: BP 137/94; PULSE 107; RESP 20
== END 2016-04-25 05:10 | disposition home or self-care (01) ==
LOC: E/R 17:50
DX: F10.121 Alcohol abuse with intoxication delirium (principal); R40.2252 Coma scale, best verbal response, oriented, at arrival to emergency department; G92 Toxic encephalopathy; R45.851 Suicidal ideations; F17.210 Nicotine dependence, cigarettes, uncomplicated; T51.92XA Toxic effect of unspecified alcohol, intentional self-harm, initial encounter; R40.2362 Coma scale, best motor response, obeys commands, at arrival to emergency department; R40.2142 Coma scale, eyes open, spontaneous, at arrival to emergency department
CPT/HCPCS: 70450; 71010; 80053; 80306; 80307; 81003; 82140; 82550; 82553; 84484; 85025; 85610; 85730; 93005; J1630; J2060; J7030; 36415; 96372

== ENCOUNTER 2016-10-10 01:06 | Emergency (ER) | payer OTHER ==
[~2016-10-10] VITALS: Ht 172.7 cm; Wt 113.0 kg
[~2016-10-10 01:06] MED LIST changes: +CLON-412 PO
[2016-10-10 01:14] VITALS: Ht 172.7 cm; Wt 113.0 kg
[2016-10-10] MEDS ORDERED: HALOPERIDOL 5 MG INJ IM STA (01:28)
[2016-10-10] MEDS ORDERED: DIPHENHYDRAMINE 50 MG INJ IM ONE (01:30)
[2016-10-10] MEDS ORDERED: LORAZEPAM 2 MG INJ IM ONE (01:30)
[2016-10-10 01:56] LABS: ADD UMIC NO; UR ASCORBIC ACID NEGATIVE (NEGATIVE); UR BILIRUBIN (Dip) NEGATIVE (NEGATIVE); UR BLOOD (Dip) NEGATIVE (NEGATIVE); UR CLARITY CLEAR (CLEAR); UR COLOR COLORLESS (YELLOW); UR GLUCOSE (Dip) NEGATIVE (NEGATIVE); UR KETONES (Dip) NEGATIVE (NEGATIVE); UR LEUKOCYTE ESTERASE (Dip) NEGATIVE Leu/ul (NEGATIVE); UR NITRITE (Dip) NEGATIVE (NEGATIVE); UR SPECIFIC GRAVITY (Dip) 1.002 (1.003-1.030); UR TOTAL PROTEIN (Dip) NEGATIVE (NEGATIVE); UR UROBILINOGEN (Dip) NEGATIVE (NEGATIVE)
[2016-10-10 01:57] LABS: BASOPHILS % 0.3 % (0.0-2.0); EOSINOPHILS # 0.1 10^3/ul (0.0-0.5); EOSINOPHILS % 0.5 % (0.0-7.0); HEMATOCRIT 45.7 % (42.0-52.0); HEMOGLOBIN 15.7 g/dl (14.0-18.0); LYMPHOCYTES # 2.8 10^3/ul (0.8-2.9); LYMPHOCYTES % 27.6 % (15.0-51.0); MEAN CORPUSCULAR HEMOGLOBIN 28.2 pg (29.0-33.0); MEAN CORPUSCULAR HGB CONC 34.4 g/dl (32.0-37.0); MEAN CORPUSCULAR VOLUME 82.2 fl (82.0-101.0); MEAN PLATELET VOLUME 9.3 fl (7.4-10.4); MONOCYTE # 1.1 10^3/ul (0.3-0.9); MONOCYTES % 11.2 % (0.0-11.0); NEUTROPHILS % 59.7 % (39.0-77.0); PLATELET COUNT 257 10^3/UL (140-415); RED BLOOD COUNT 5.56 10^6/ul (4.70-6.10); RED CELL DISTRIBUTION WIDTH 13.1 % (11.5-14.5)
[2016-10-10 02:24] LABS: ALANINE AMINOTRANSFERASE 96 IU/L (13-69); ALBUMIN 4.8 g/dl (3.3-4.9); ALBUMIN/GLOBULIN RATIO 1.26; ALKALINE PHOSPHATASE 109 IU/L (42-121); ANION GAP 26 (8-16); ASPARTATE AMINO TRANSFERASE 225 IU/L (15-46); BLOOD UREA NITROGEN 6 mg/dl (7-20); CALCIUM 8.9 mg/dl (8.4-10.2); CARBON DIOXIDE 22 mmol/L (21-31); CHLORIDE 104 mmol/L (97-110); CREATININE 0.84 mg/dl (0.61-1.24); GLUCOSE 123 mg/dl (70-220); SODIUM 148 mmol/L (135-144); TOTAL PROTEIN 8.6 g/dl (6.1-8.1)
[2016-10-10 02:33] LABS: ACETAMINOPHEN < 10.0 ug/ml (10.0-30.0); SALICYLATE < 1.0 mg/dl (5.0-30.0)
[2016-10-10 02:45] LABS: BARBITURATES Negative (NEGATIVE); BENZODIAZEPINES Negative (NEGATIVE); COCAINE Negative (NEGATIVE); OPIATES Negative (NEGATIVE)
[2016-10-10 03:18] LABS: CANNABINOIDS Negative (NEGATIVE)
--- NOTE | 2016-10-10 05:16 | ERD ---
ER Documentation Chief Complaint Date/Time DATE: 10/10/16 TIME: 05:15 Chief Complaint BIBRA c/o ETOH. Was in a parked vehicle. No signs of trauma. HPI This is a 25-year-old male who comes in via EMS for being combative and drunk. History of psychiatric disorder. Admits drinking. Says he is not without its meds. Patient very combative and will require chemical sedation along with 4. restraints ROS All systems reviewed and are negative except as per history of present illness. Medications Home Meds Active Scripts Clonazepam* (Klonopin*) 1 Mg Tablet, 1 MG PO Q8H Y for ANXIETY for 3 Days, #9 TAB Prov:KATHY SHINE 04/25/16 Albuterol/Ipratropium* (Combivent Respimat*) 20-100 Mcg/Inh - 4 Gm Aer.w.adap, 1 PUFF INHALATION QID, #1 INHALER Prov:YANETH PAL MD 04/07/16 Gentamicin Sulfate* (Gentamicin Sulfate* Ophth) 0.3% - 5 Ml Drops, 1 DROP BOTH EYES Q4 for 10 Days, EA Prov:YANETH PAL MD 04/07/16 Thiamine* (Thiamine*) 100 Mg Tablet, 100 MG PO DAILY, #30 TAB 2 Refills Prov:YANETH PAL MD 04/07/16 Multivitamin (MULTI VITAMIN DAILY) 1 Each Tablet, 1 TAB PO DAILY, #30 TAB 2 Refills Prov:YANETH PAL MD 04/07/16 Folic Acid* (Folic Acid*) 1 Mg Tablet, 1 MG PO DAILY, #30 TAB 2 Refills Prov:YANETH PAL MD 04/07/16 Famotidine* (Famotidine*) 20 Mg Tablet, 20 MG PO DAILY, #30 TAB Prov:YANETH PAL MD 04/07/16 Metoprolol Tartrate* (Lopressor*) 25 Mg Tab, 25 MG PO BID, #60 TAB Prov:YANETH PAL MD 04/07/16 Chlordiazepoxide* (Chlordiazepoxide*) 25 Mg Capsule, 50 MG PO TID, #21 CAP Prov:YANETH PAL MD 04/07/16 Allergies Allergies: Coded Allergies: No Known Allergy (Verified , 09/01/10) PMhx/Soc Medical and Surgical Hx: Unable to obtain History of Surgery: No Hx Neurological Disorder: No Hx Respiratory Disorders: No Hx Cardiac Disorders: No Hx Psychiatric Problems: No Hx Miscellaneous Medical Probl: No Hx Alcohol Use: Yes (2- 40oz today) Hx Substance Use: Yes Hx Tobacco Use: Yes (sometimes) Smoking Status: Current some day smoker Physical Exam Vitals Vital Signs Date Time Temp Pulse Resp B/P Pulse Ox O2 Delivery O2 Flow Rate FiO2 10/10/16 05:00 98.3 115 18 129/52 96 Nasal Cannula 4.0 10/10/16 02:58 110 20 116/51 100 Non Rebreather 15.0 10/10/16 01:14 98.1 112 18 138/99 95 Physical Exam Const: [] Head: Atraumatic Eyes: Normal Conjunctiva ENT: Normal External Ears, Nose and Mouth. Neck: Full range of motion..~ No meningismus. Resp: Clear to auscultation bilaterally Cardio: Regular rate and rhythm, no murmurs Abd: Soft, non tender, non distended. Normal bowel sounds Skin: No petechiae or rashes Back: No midline or flank tenderness Ext: No cyanosis, or edema Neur: Awake and alert Psych: Normal Mood and Affect Result Diagram: 10/10/16 0120 10/10/16 0120 Results 24 hrs Laboratory Tests Test 10/10/16 01:20 White Blood Count 10.010^3/ul Red Blood Count 5.5610^6/ul Hemoglobin 15.7g/dl Hematocrit 45.7% Mean Corpuscular Volume 82.2fl Mean Corpuscular Hemoglobin 28.2pg Mean Corpuscular Hemoglobin Concent 34.4g/dl Red Cell Distribution Width 13.1% Platelet Count 92657^3/UL Mean Platelet Volume 9.3fl Neutrophils % 59.7% Lymphocytes % 27.6% Monocytes % 11.2% Eosinophils % 0.5% Basophils % 0.3% Nucleated Red Blood Cells % 0.0/100WBC Neutrophils # 6.010^3/ul Lymphocytes # 2.810^3/ul Monocytes # 1.110^3/ul Eosinophils # 0.110^3/ul Basophils # 0.010^3/ul Nucleated Red Blood Cells # 0.010^3/ul Urine Color COLORLESS Urine Clarity CLEAR Urine pH 6.0 Urine Specific [place] 1.002 Urine Ketones NEGATIVEmg/dL Urine Nitrite NEGATIVEmg/dL Urine Bilirubin NEGATIVEmg/dL Urine Urobilinogen NEGATIVEmg/dL Urine Leukocyte Esterase NEGATIVELeu/ul Urine Hemoglobin NEGATIVEmg/dL Urine Glucose NEGATIVEmg/dL Urine Total Protein NEGATIVEmg/dl Sodium Level 148mmol/L Potassium Level 4.0mmol/L Chloride Level 104mmol/L Carbon Dioxide Level 22mmol/L Anion Gap 26 Blood Urea Nitrogen 6mg/dl Creatinine 0.84mg/dl Glucose Level 123mg/dl Calcium Level 8.9mg/dl Total Bilirubin 0.0mg/dl Direct Bilirubin 0.00mg/dl Indirect Bilirubin 0.0mg/dl Aspartate Amino Transf (AST/SGOT) 225IU/L Alanine Aminotransferase (ALT/SGPT) 96IU/L Alkaline Phosphatase 109IU/L Total Protein 8.6g/dl Albumin 4.8g/dl Globulin 3.80g/dl Albumin/Globulin Ratio 1.26 Salicylates Level < 1.0mg/dl Urine Opiates Screen Negative Acetaminophen Level < 10.0ug/ml Urine Barbiturates Negative Urine Amphetamines Screen Negative Urine Benzodiazepines Screen Negative Urine Cocaine Screen Negative Urine Cannabinoids Negative Ethyl Alcohol Level 381.0mg/dl Current Medications Medications (Trade) Dose Ordered Sig/Suzanne Route PRN Reason Start Time Stop Time Status Last Admin Dose Admin Haloperidol (Haldol) 5 mg ONCE STAT IM 10/10/16 01:28 10/10/16 01:31 DC 10/10/16 01:47 Diphenhydramine HCl (Benadryl) 50 mg ONCE ONCE IM 10/10/16 01:30 10/10/16 01:31 DC 10/10/16 01:47 Lorazepam (Ativan) 2 mg ONCE ONCE IM 10/10/16 01:30 10/10/16 01:31 DC 10/10/16 01:47 Procedures/MDM Patient's behavioral symptoms have stabilized while in the department. Patient is medically cleared and appropriate for psychiatric evaluation and work up. No e/o neurologic, toxic, infectious, or metabolic cause. Departure Diagnosis: Primary Impression: Psychiatric disorder Additional Impression: Alcohol intoxication Complication of substance-induced condition: uncomplicated Qualified Code: F10.120 - Alcohol intoxication, uncomplicated Condition: Stable KATHY SHINE Oct 10, 2016 05:16
--- NOTE | 2016-10-10 07:14 | PSY ---
Date/Time of Note Date/Time of Note DATE: 10/10/16 TIME: 06:56 Psychiatric Subjective Eval Consent Pt consented to telemedicine: Yes Subjective Evaluation Patient location: emergency Chief Complaint: BIBRA c/o ETOH. Was in a parked vehicle. No signs of trauma. History of present illness He stated that he works, drinks excessive amts of alcohol off and on, he did not remember being agitated.He was brought becasue family stated that he was aggressive at home, intoxicated . He was found in a parked car. He stated he has depression , takes Lexapro dose unknown to him Denied street drug use. Denied any thoughts of harming self or others, denied prior suicide attemtps or history of hurting self.However he was admitted under 5150 for oevredosing in . He has had several other visits related to alcohol intoxication, encephalopathy. He is still somewhat drowsy, speech is incoherent Past psychiatric history , as per ED doctor's note schizophrenia , he stated he has depresion Hospitalization: yes Family History ndenies Medical history Problems Medical Problems: (1) Alcohol intoxication Status: Acute (2) Alcohol intoxication Status: Acute (3) Altered level of consciousness Status: Acute (4) Psychiatric disorder Status: Acute (5) Suicidal thoughts Status: Acute (6) Toxic encephalopathy Status: Acute Allergies: Coded Allergies: No Known Allergy (Verified , 09/01/10) Social History Marital status: single Psychiatric Objective Eval Review of Systems: Review of Systems: Not Applicable Physical Examination: Physical Examination: Not Applicable Mental Status Examination: Appearance: Groomed Eye Contact: Good Behavior: Cooperative Speech: Slurred AFFECT: Constricted Mood: Appropriate/Full Though Process: Linear Thought Content: Normal Suicidal: No Homicidal: No Orientation: x3 Cognition: Alert Insight: Impared Judgement: Intact Attention Span: Distractible Laboratory Results Laboratory Tests Test 10/10/16 01:20 White Blood Count 10.010^3/ul Red Blood Count 5.5610^6/ul Hemoglobin 15.7g/dl Hematocrit 45.7% Mean Corpuscular Volume 82.2fl Mean Corpuscular Hemoglobin 28.2pg Mean Corpuscular Hemoglobin Concent 34.4g/dl Red Cell Distribution Width 13.1% Platelet Count 87274^3/UL Mean Platelet Volume 9.3fl Neutrophils % 59.7% Lymphocytes % 27.6% Monocytes % 11.2% Eosinophils % 0.5% Basophils % 0.3% Nucleated Red Blood Cells % 0.0/100WBC Neutrophils # 6.010^3/ul Lymphocytes # 2.810^3/ul Monocytes # 1.110^3/ul Eosinophils # 0.110^3/ul Basophils # 0.010^3/ul Nucleated Red Blood Cells # 0.010^3/ul Urine Color COLORLESS Urine Clarity CLEAR Urine pH 6.0 Urine Specific [place] 1.002 Urine Ketones NEGATIVEmg/dL Urine Nitrite NEGATIVEmg/dL Urine Bilirubin NEGATIVEmg/dL Urine Urobilinogen NEGATIVEmg/dL Urine Leukocyte Esterase NEGATIVELeu/ul Urine Hemoglobin NEGATIVEmg/dL Urine Glucose NEGATIVEmg/dL Urine Total Protein NEGATIVEmg/dl Sodium Level 148mmol/L Potassium Level 4.0mmol/L Chloride Level 104mmol/L Carbon Dioxide Level 22mmol/L Anion Gap 26 Blood Urea Nitrogen 6mg/dl Creatinine 0.84mg/dl Glucose Level 123mg/dl Calcium Level 8.9mg/dl Total Bilirubin 0.0mg/dl Direct Bilirubin 0.00mg/dl Indirect Bilirubin 0.0mg/dl Aspartate Amino Transf (AST/SGOT) 225IU/L Alanine Aminotransferase (ALT/SGPT) 96IU/L Alkaline Phosphatase 109IU/L Total Protein 8.6g/dl Albumin 4.8g/dl Globulin 3.80g/dl Albumin/Globulin Ratio 1.26 Salicylates Level < 1.0mg/dl Urine Opiates Screen Negative Acetaminophen Level < 10.0ug/ml Urine Barbiturates Negative Urine Amphetamines Screen Negative Urine Benzodiazepines Screen Negative Urine Cocaine Screen Negative Urine Cannabinoids Negative Ethyl Alcohol Level 381.0mg/dl Assessment and Plan Assessment/Diagnosis Jackson I: alcohol use disorder it is unclear from current presentation an past presentations here if h has schizophrenia r/o underlying psychiatric disorder Jackson II: deferred Jackson III: as pe ed Jackson IV: moderate Recommendation/Plan Medication Management 35 Psychotherapy AXIS V is 35. No meds for now May use Ativan 1mg q 4 hr PRN agitation. Discussed with ED doctor. He is inebriated, slurred speech, poor attention . Currently denies any suicidal ideations or homicidal ideations, he is not agitated agressive at this time. His ETOH was 381 .We have decoided to observe him further . Once more alert, and if he remains calm, no si,hi he can be d/angelito after reevsaluation . he will be kept on 8 hr hold for further observation in ED Follow-up/Disposition as above 5150 Recommendation: Continue Hold TUCKER SAMUEL MD Oct 10, 2016 07:07
[2016-10-10 14:00] VITALS: BP 140/89; PULSE 114; RESP 20; TEMP 98.3
== END 2016-10-10 14:30 ==
LOC: E/R 01:06
DX: F99 Mental disorder, not otherwise specified (principal); F17.210 Nicotine dependence, cigarettes, uncomplicated; R40.2142 Coma scale, eyes open, spontaneous, at arrival to emergency department; R40.2362 Coma scale, best motor response, obeys commands, at arrival to emergency department
CPT/HCPCS: 80053; 80306; 80307; 81003; 85025; J1200; J1630; J2060; 36415; 96372